=== PATIENT | male | born 1955 | race Caucasian/White ===

== ENCOUNTER 2023-07-11 15:20 | Day surgery (SDC) | payer MEDICARE, OTHER ==
[2023-07-11] MEDS ORDERED: XYLOCAINE-MPF 1% 5ML SDV IJ ONE (15:21)
[2023-07-11] MEDS ORDERED: Depo-Medrol 40 MG/ML IM ONE (15:21)
[2023-07-11] MEDS ORDERED: Sodium Chloride 0.9(Preservative Free) 10 ML IJ ONE (15:21)
[2023-07-11] MEDS ORDERED: Lactated Ringers 1,000 ML IV ONE (17:40)
--- NOTE | 2023-07-11 20:21 | XRAY ---
Indication: Lumbar TERELL. Intraoperative fluoroscopy provided for 19 seconds. 2 digital spot images submitted for interpretation demonstrates posterior needle tip projecting posterior to lumbosacral junction. Small amount of contrast injected for needle tip placement. Correlate with intraoperative findings/report.
--- NOTE | 2023-07-12 08:44 | XRAY ---
19 seconds of fluoroscopy was used in surgery for a lumbar TERELL.
== END 2023-07-11 18:35 | disposition home or self-care (01) ==
LOC: SDC-PAIN 15:20
PROVIDERS: ATTEND Psychiatry & Neurology Pain Medicine
DX: M54.16 Radiculopathy, lumbar region (principal); E11.9 Type 2 diabetes mellitus without complications
CPT/HCPCS: 62323; 72100; 77003; 82947; J1030; Q9966